=== PATIENT | male | born 1975 | race Caucasian/White ===

== ENCOUNTER 2016-12-23 07:35 | Inpatient (IN) | payer OTHER ==
--- NOTE | 2016-12-17 13:21 | CONS ---
DATE OF ADMISSION: 12/23/2016 DATE OF CONSULTATION: 12/17/2016 REQUESTING PHYSICIAN: Dr. Mccann. DATE OF PLANNED SURGERY: 12/23/2016 Thank you very much for allowing me to evaluate this 41-year-old male who is to undergo cervical spi ne surgery. HISTORICAL EVENTS: As you well know, it has been over 3 years that the patient has noted pain invol ving his neck and shoulders, the left more than right, with intermittent pain involving his left arm and related weakness involving the same. Because of continued symptoms and the lack of physical th erapy to provide any benefit and following electrodiagnostic studies, the patient elected to proceed with surgery. Today, he denies cough, wheezing, shortness of breath, chest pain at rest or with ex ertion. He denies nausea, vomiting, abdominal pain, unusual constipation, or diarrhea. Does have m odest degree of gastroesophageal reflux manifested by discomfort involving the epigastrium and throa t, occurring several times a week, gaining some relief from Zantac and some difficulty swallowing so lids more than liquids in the upper throat and mid chest. He denies urinary frequency, dysuria, fla nk pain, fever or chills, or significant nocturia. PRESENT MEDICATIONS: None. PAST MEDICAL HISTORY: Includes: 1. Left wrist surgery, remote. 2. Appendectomy. 3. No history of diabetes, heart disease, hypertension, or ulcers. 4. History of asthma. Uses a nebulizer intermittently. ALLERGIES: NONE. FAMILY HISTORY: Positive for coronary disease. SOCIAL HISTORY: He is a nonsmoker. , has 3 kids. Socially drinks alcohol. Works for [employer]. PHYSICAL EXAMINATION: GENERAL: Overweight male in no acute distress. VITAL SIGNS: BP 121/81, pulse was 72, respirations were 18. He was afebrile. EYES: Extraocular muscles were full. NOSE, MOUTH, AND THROAT: Normal. NECK: Supple. There was no jugular venous distention, thyroid enlargement, or adenopathy. Carotid s 2+, no bruits. LUNGS: Clear. HEART: Rhythm was regular, no murmur. No third or fourth sound. ABDOMEN: Nontender. Liver and spleen were not palpable. No masses or tenderness were noted. EXTREMITIES: No edema. Calves nontender. Pulses 2+. NEUROLOGIC: Revealed no lateralizing motor weakness. IMPRESSION: 1. Pending labs, I foresee no problems with the planned surgical intervention. 2. Gastroesophageal reflux and dysphasia. I made a strong point that following surgery he does nee d to pursue this with his internal medicine doctor and seek gastroenterology evaluation for needed e ndoscopy, but for the moment he should use Zantac on a regular basis. I will be glad to follow him postoperatively with you. Dictated By: ASIA STOUT/ROCIO Conf#: [id number] DID#: [id number]
[2016-12-20 12:24] VITALS: BMI 34.0
[~2016-12-23] VITALS: Ht 175.3 cm; Wt 103.5 kg
[2016-12-23] VITALS (20 sets, daily range): BP systolic 114–157; BP diastolic 66–92; PULSE 70–115; RESP 12–20; Ht 175.3 cm; Wt 103.5 kg
[~2016-12-23 07:35] MED LIST: CEFAZOLIN 2 GM/50 ML (PMX) 50 ML IVPB SCH; LACTATED RINGER'S 1,000 ML IV* SCH
[2016-12-23] MEDS ORDERED: THROMBIN 5000 UNIT VIAL ONE (09:13)
[2016-12-23] MEDS ORDERED: GELATIN SIZE 100 SPONGE ONE (09:13)
[2016-12-23] MEDS ORDERED: BUPIVACAINE 0.25% (MPF) 10 ML 10 ML VIAL ONE (09:13)
[2016-12-23] MEDS ORDERED: POLYMYXIN/BACITRACIN 1L IRRIG ONE ×2 (09:13→12:51)
[2016-12-23] MEDS ORDERED: MIDAZOLAM 1 MG/ML 2 ML INJ ONE (09:26)
[2016-12-23] MEDS ORDERED: HYDROmorphONE 2 MG/ML SYG ONE (09:26)
[2016-12-23] MEDS ORDERED: PROPOFOL 20 ML ONE ×2 (09:26→09:46)
[2016-12-23] MEDS ORDERED: ROCURONIUM 50 MG INJ ONE (09:26)
[2016-12-23] MEDS ORDERED: ONDANSETRON 4 MG INJ ONE (09:27)
[2016-12-23] MEDS ORDERED: LIDOCAINE 2% JELLY 5 ML ONE (09:28)
--- NOTE | 2016-12-23 09:28 | HPN ---
Date/Time of Note Date/Time of Note DATE: 12/23/16 TIME: 09:28 Interval H&P Admission Note Pt. seen H&P reviewed: No system changes PERI BAUMAN MD Dec 23, 2016 09:28
[2016-12-23] MEDS ORDERED: BACITRACIN/POLYMYXIN 28.35 GM OINT TOP ONE (09:48)
[2016-12-23] MEDS ORDERED: METOPROLOL 5 MG INJ ONE (09:48)
--- NOTE | 2016-12-23 11:50 | RADRPT ---
PROCEDURE: Cross-table lateral x-ray of the cervical spine CLINICAL INDICATION: CERVICAL FUSION C5-6 C6-7 TECHNIQUE: Single cross-table lateral view of the neck. COMPARISON: None. FINDINGS: The endotracheal tube tip extends just below the level of the true vocal cords. An NG tube is noted in place. Anterior endplate spurring is noted at C4-C5 and C5-C6 levels with degenerative endplate changes at C4-C5 and C5-C6, and C6-S7. Posterior spondylitic ridging at C5-C6. Vertebral bodies ar e otherwise normal in height, density, and alignment with preservation of disk interspaces. Intact posterior spinous processes. Craniocervical junction is unremarkable. IMPRESSION: 1. Multilevel degenerative endplate spurring and spondylosis greatest from C4-C5 through C6-C7. 2. Endotracheal tube tip just below the level of the true vocal cords. 3. NG tube in place. 4. No soft tissue or osseous abnormality. RPTAT:AAJJ Physician Clementina Date Time Electronically viewed and signed by Physician Clementina on 12/23/2016 11:50 VIBHA/
[2016-12-23] MEDS ORDERED: DIPHENHYDRAMINE 50 MG INJ IV PRN (12:00)
[2016-12-23] MEDS ORDERED: MEPERIDINE 25 MG INJ IV PRN (12:00)
[2016-12-23] MEDS ORDERED: METOCLOPRAMIDE 10 MG INJ IV PRN (12:00)
[2016-12-23] MEDS ORDERED: ONDANSETRON 4 MG INJ IV PRN ×2 (12:00→15:30)
[2016-12-23] MEDS ORDERED: HYDROmorphONE (0.2 MG/ML) 10ML SYG IV PRN ×3 (12:00)
[2016-12-23] MEDS ORDERED: NEOSTIGMINE 3 MG/3 ML SYRINGE ONE (13:13)
[2016-12-23] MEDS ORDERED: GLYCOPYRROLATE 1 MG INJ ONE (13:13)
--- NOTE | 2016-12-23 14:28 | OPPN ---
Date/Time of Note Date/Time of Note DATE: 12/23/16 TIME: 14:20 Operative/Procedure Note Pre-Operative Diagnosis Herniated disc C5-6 on the right Herniated disc at C6-7 on the left Post-Operative Diagnosis Same Procedure Anterior cervical microdiscectomy C5-6 Anterior cervical microdiscectomy C6-7 Anterior cervical arthrodesis C5-6 Anterior cervical arthrodesis C6-7 Segmental spinal fixation from C5-C7 using RTI plate and screws Left iliac bone grafting Cosmetic wound closures (5 cm left cervical, 3 cm left iliac) Intraoperative nerve monitoring (3 hours) Surgeon: PERI BAUMAN MD Quality Assurance Monitor Body: YURIDIA CALDERON Anesthesiologist: BONITA GRANADOS MD Findings A disc herniation at C5-6 on the right and C6-7 on the left was confirmed. Baseline intraoperative nerve monitoring revealed a decrease in the left C5 potential of 20%, the left C6 potential of 40%, the right C6 potential of 30%, left C7 potential of 40%, and the right C7 potential of 20%. These all returned to normal at the completion of the surgery. Blood Usage/Administration None Implants/Grafts A 32 mm RTI cervical plate and 6 14 mm variable angle self-tapping screws were employed Left iliac bone graft was used at C5-6 and C6-7 as well Estimated blood loss: 10 - 50 ml's Drains 2 medium Hemovac drains were employed in the cervical wound 2 medium Hemovac drains were employed in the left iliac wound Specimens Disc material from C5-6 and C6-7 was sent to the laboratory for pathologic study Complications: None Anesthesia type: general PERI BAUMAN MD Dec 23, 2016 14:28
[2016-12-23 14:35] LABS: ADD UMIC YES; URINE BILIRUBIN (Dip) NEGATIVE (NEGATIVE); URINE BLOOD (Dip) 2+ (NEGATIVE); URINE COLOR LT. YELLOW (YELLOW); URINE GLUCOSE (Dip) NEGATIVE (NEGATIVE); URINE KETONES (Dip) NEGATIVE (NEGATIVE); URINE LEUKOCYTE ESTERASE (Dip) NEGATIVE (NEGATIVE); URINE NITRITE (Dip) NEGATIVE (NEGATIVE); URINE TOTAL PROTEIN (Dip) 1+ (NEGATIVE); URINE UROBILINOGEN (Dip) 0.2 E.U./dL (0.1-1.0)
[2016-12-23 15:13] LABS: BACTERIA,URINE FEW
[2016-12-23] MEDS: HYDROmorphONE 0.2 MG/ML PCA IV SCH ×3 (15:23→15:31)
[2016-12-23] MEDS ORDERED: ZOLPIDEM 5 MG TAB PO PRN (15:30)
[2016-12-23] MEDS ORDERED: HYDROCODONE/APAP (5/325) TAB PO PRN (15:30)
[2016-12-23] MEDS ORDERED: DIAZEPAM 5 MG/ML SYG IM PRN (15:30)
[2016-12-23] MEDS ORDERED: NALOXONE (0.4 MG/ML) INJ IV PRN (15:30)
[2016-12-23] MEDS ORDERED: PROCHLORPERAZINE 10 MG TAB PO PRN (15:30)
[2016-12-23] MEDS ORDERED: CEPASTAT LOZENGE MT PRN (15:30)
[2016-12-23] MEDS ORDERED: DIPHENHYDRAMINE 50 MG CAP PO PRN (15:30)
[2016-12-23] MEDS ORDERED: TRIMETHOBENZAMIDE 100 MG/ML VIAL IM PRN (15:30)
[2016-12-23] MEDS ORDERED: NACL 0.9% 3 ML SYG IV SCH (15:30)
[2016-12-23] MEDS ORDERED: BETHANECHOL 25 MG TAB PO PRN (15:30)
[2016-12-23] MEDS ORDERED: AL HYDROX/MG HYDROX/SIMETH 30 ML CUP PO PRN (15:30)
[2016-12-23] MEDS: DEXTROSE 5%-0.45% NACL 1,000 ML IV SCH (16:04)
[2016-12-23] MEDS ORDERED: ACETAMINOPHEN 325 MG TAB PO PRN (17:00)
--- NOTE | 2016-12-23 17:11 | PREOPHP ---
DATE OF ADMISSION: 12/23/2016 Thank you, Dr. Mccann, for asking me to participate in the medical management of this patient. REASON FOR CONSULTATION: To manage the patient's asthma. HISTORY OF PRESENT ILLNESS: This 41-year-old man is now postop a cervical spine surgery. This baljit ent has been having pain in his neck and shoulders for at least 3 years. He has more pain on the le ft than the right with intermittent pain involving his left arm and related weakness involving the l eft arm. The patient did undergo a cervical spine surgery today by Dr. James Mccann. The patient underwent an anterior cervical microdiscectomy at C5-C6 level and an anterior cervical microdiscecto my at the C6-C7 level with anterior cervical arthrodesis at C5-C6 and anterior cervical arthrodesis at C6-C7. The patient is awake and alert. He denies any chest pain or shortness of breath. PAST MEDICAL HISTORY: Remarkable for asthma for which he takes an inhaler. He says that recently leander ramirez has not had a problem with his asthma and does not need the inhaler at this time. PAST SURGICAL HISTORY: Remarkable for left wrist surgery, appendectomy. ALLERGIES: THE PATIENT DENIES ANY DRUG ALLERGIES. FAMILY HISTORY: Positive for coronary artery disease. SOCIAL HISTORY: He is . He does not smoke. He drinks alcohol socially. He works for the [employer]. PHYSICAL EXAMINATION: GENERAL: At this time reveals a well-developed man in no apparent distress. VITAL SIGNS: Temperature is 98, pulse of 84, respirations 18, blood pressure 145/92, O2 saturation is 92% on 3 liter nasal cannula. IMPRESSION: This patient is stable postoperatively. His vital signs are acceptable. HEAD: Normocephalic. EYES: Extraocular muscles intact. NOSE AND MOUTH: Normal. NECK: He has a large rigid neck brace on. LUNGS: Clear to auscultation. HEART: Regular rhythm. No murmurs, gallops or rubs. ABDOMEN: Soft, nontender. EXTREMITIES: No peripheral edema. IMPRESSION: The patient is doing well postoperatively. He does have a history of asthma; however, this is not active at this time. He says that he only uses an inhaler when his asthma is active. PLAN: 1. I will manage the patient's asthma and his medications. 2. Postop cervical spine surgery protocol. 3. Labs in the morning. 4. I will follow the patient along with you. Dictated By: MILLY LEAHY MD, ND/ROCIO Conf#: [id number] DID#: [id number]
--- NOTE | 2016-12-23 17:23 | OPR ---
DATE OF OPERATION: 12/23/2016 PREOPERATIVE DIAGNOSES: 1. Herniated disk C5-C6 on the right. 2. Herniated disk C6-C7 on the left. POSTOPERATIVE DIAGNOSES: 1. Herniated disk C5-C6 on the right. 2. Herniated disk C6-C7 on the left. OPERATION PERFORMED: 1. Anterior cervical microdiskectomy at C5-6 on the right. 2. Anterior cervical microdiskectomy at C6-7 on the left. 3. Anterior cervical interbody arthrodesis at C5-6. 4. Anterior cervical interbody arthrodesis at C6-7. 5. Segmental spinal fixation from C5 to C7 using RTI 32 mm plate and screws. 6. Left iliac bone graft. 7. Cosmetic wound closures (5 cm left cervical, 3 cm left iliac). 8. AP and lateral cervical radiographs (3 sets). 9. Intraoperative nerve monitoring (3 hours). SURGEON: James Mccann MD ASSISTANT COUNSEL: LEVY Neil ANESTHESIA: General endotracheal. ANESTHESIOLOGIST: Aleyda Piedra MD ESTIMATED BLOOD LOSS: 50 mL, none replaced. DRAINS: Two medium Hemovac drains employed in the cervical wound. Two medium Hemovac drains employ ed in the left iliac wound. COMPLICATIONS: None. PERTINENT HISTORY AND PHYSICAL: This is a 41-year-old male who sustained an injury to his neck in t he course of employment on 09/29/2014. He has had extensive care since that time. He has remained symptomatic with neck and upper extremity complaints, left greater than right, which have been unrel ieved by conservative management. He has undergone a number of diagnostic studies including an MRI of the cervical spine, which demonstrated herniations at C5-6 disk on the right at C6-7 disk on the left. Treatment options were discussed with the patient, who elected to proceed with surgery. OPERATIVE FINDINGS AT SURGERY: Herniations at C5-6 on the right at C6-C7 on the left were confirmed . The baseline intraoperative nerve monitoring revealed a decrease in the left C5 potential of 20%, the left C6 potential of 40%, the right C6 potential of 30%, the left C7 potential of 40%, and the right C7 potential of 20%. These all returned to normal at the completion of surgery. OPERATIVE PROCEDURE: With the patient in supine position after satisfactory induction of general en dotracheal anesthesia by Dr. Piedra, the patient was positioned in the supine position with a 5- pound sandbag under the left buttock and a 3 liter IV bottle under the shoulders. The anterior cerv ical spine and left iliac crest were prepped and draped in usual sterile fashion. Athrombic pumps w ere applied to the legs below the knees to prevent venous stasis during and after procedure and an i ndwelling Salazar catheter was also placed preoperatively to facilitate bladder drainage during and af ter the procedure. A 5 cm incision was carried out on the anterior aspect of cervical spine 2 fingerbreadths above the left clavicle in line with the left clavicle through skin and subcutaneous tissue to the platysma fa scia. Superficial retractors were placed and hemostasis secured with electrocautery. Throughout th e procedure, copious amounts of antibacterial irrigating solution were used to periodically irrigate the wound. The platysma fascia was divided transversely and the interval between the sternocleidom astoid and strap muscles was entered with blunt dissection. The trachea and esophagus were mobilize d to the right and protected with a Enrique hand-held retractor. A peanut elevator was then used to clear the anterior longitudinal ligament of overlying soft tissues. A 20-gauge spinal needle was c arefully angulated to prevent overpenetration and was then placed into what was felt to be the C5-6 and C6-7 disk spaces. A lateral cervical radiograph was taken, which confirmed anatomic localizatio n. The longissimus coli muscles were then elevated bilaterally using a hot knife, and the Enrique s elf-retaining retractor was placed at C5-6 and C6-7. The operating microscope was then moved into [facility]. A 15 blade knife was then used to cut a rectangular window in the annulus and anterior longit udinal ligament at C6-7. The 0, 2-0, 3-0, and 4-0 straight and angulated Temi curettes were then used to evacuate the nuclear contents back to the level of the posterior longitudinal ligament. The Cloward interbody distractors were used to facilitate disk space distraction. The posterior longit udinal ligament was taken down in midline with a 1 mm Kerrison punch and then over to the foramina b ilaterally. This decompressed the spinal cord and exiting C7 roots at that level. The [employer] high -speed anahy bur was then used to abrade the cartilaginous endplates down to subchondral bleeding bone. Attention was then turned to the C5-6 disk where the identical procedure was carried out. Th e posterior longitudinal ligament was taken down at the C5-C6 level as well to facilitate decompress ion of the spinal cord and the exiting C6 nerve roots at that level. Attention was then turned to t he left iliac crest where a 3 cm incision was carried out 1 inch proximal and 1 inch lateral to the anterior superior iliac spine in line with the iliac crest through skin and subcutaneous tissue to t he fascia. The skin was retracted to the level of the iliac crest and a fascial incision made direc tly over the iliac crest with a hot knife. A subperiosteal dissection was then carried out in the i nner and outer table of the left ilium, and a tricortical iliac bone graft harvested using a Black a nd Corbett reciprocating power saw and a 3/4 inch curved osteotome and mallet. The bone was divided into 2 pieces, each approximately 6 mm in height and 8 mm in depth. Attention was then returned to the cervical wound where the bone plugs were placed into the C5-6 and C6-7 disk spaces under direct vision using the Cloward impactors. The donor bone site was copiously irrigated with antibacterial irrigating solution and bone edges secured with bone wax for hemostasis. The wound was closed over 2 medium Hemovac drains, one below the fascia and one above the fascia, using #1 Vicryl sutures on t he fascia, 2-0 Vicryl sutures in subcutaneous tissue, and a 4-0 Vicryl subcuticular cosmetic closing suture on the skin. With the bone plugs having been impacted at C5-6 and C6-7. A 32 mm RTI cervical plate was temporari ly transfixed to the anterior aspect of cervical spine with the temporary darts, AP and lateral x-ra ys taken, which confirmed appropriate positioning of the bone plugs and the hardware. The 14 mm dario iable angle self-tapping screws were then placed into the 6 screw holes, 2 into C5, 2 into C6, and 2 into C7. Final AP and lateral cervical radiographs were taken, which confirmed appropriate positio daria of the bone plugs and the hardware. The wound was copiously irrigated with antibacterial irrig ating solution then closed over 2 medium Hemovac drains, one below the fascia, one above the fascia using 0 Vicryl sutures to reapproximate the interval between the sternocleidomastoid and strap muscl es, 0 Vicryl sutures on the platysma fascia, 3-0 Vicryl sutures in subcutaneous tissue, and a 4-0 Vi cryl subcuticular cosmetic closing suture on the skin. Dermabond and sterile dressings were applied to both incisions. The patient's neck was then immobilized in a cervical collar. He was then awak ened and extubated by Dr. Piedra. He was transported to recovery room in satisfactory condition . At the conclusion of the procedure, sponge, instrument, and needle counts were all correct. NEED FOR MEDIA SERVICES COORDINATOR: During this spinal surgical procedure, my human resources assistant manager was used to retrac t and protect the spinal nerves and dural sac. My human resources assistant manager also employed the suction catheters to evacuate blood from the surgical field to improve visualization of the neural structures. The sandra tant was medically necessary to facilitate the completion of the surgery in a safe and expeditious sabino. State of [place] regulations, as well as hospital bylaws, preclude the use of non-license d health care personnel such as operating room technicians, to perform these functions. Throughout the procedure, neural monitoring was carried out by [employer] including C4, C5, C6, C7, C8, along with spinal cord potentials and monitoring of the vocal cords. These were interpreted by neurologist employed by [employer]. Dictated By: JAMES MCCANN MD TM/NTS Conf#: [id number] DID#: [id number] CC: ASIA HERNANDEZ MD;*[facility]*
[2016-12-23] MEDS: AL HYDROX/MG HYDROX/SIMETH 30 ML CUP PO PRN (19:29)
[2016-12-23] MEDS: RANITIDINE 150 MG TAB PO SCH (21:36)
[2016-12-24] MEDS: DEXTROSE 5%-0.45% NACL 1,000 ML IV SCH ×3 (01:10→21:08)
[2016-12-24] MEDS: DIAZEPAM 5 MG TAB PO PRN ×2 (01:48→19:54)
[2016-12-24 05:48] LABS: BASOPHILS % 0.2 % (0.0-2.0); EOSINOPHILS % 0.2 % (0.0-7.0); HEMATOCRIT 43.5 % (42.0-52.0); HEMOGLOBIN 14.8 g/dl (14.0-18.0); LYMPHOCYTES # 1.2 10^3/ul (0.8-2.9); LYMPHOCYTES % 9.3 % (15.0-51.0); MEAN CORPUSCULAR HEMOGLOBIN 31.8 pg (29.0-33.0); MEAN CORPUSCULAR VOLUME 93.7 fl (82.0-101.0); MEAN PLATELET VOLUME 9.9 fl (7.4-10.4); MONOCYTE # 0.9 10^3/ul (0.3-0.9); MONOCYTES % 6.8 % (0.0-11.0); NEUTROPHIL # 10.4 10^3/ul (1.6-7.5); NEUTROPHILS % 83.5 % (39.0-77.0); PLATELET COUNT 178 10^3/UL (140-440); RED BLOOD COUNT 4.64 10^6/ul (4.70-6.10); RED CELL DISTRIBUTION WIDTH 13.1 % (11.5-14.5); UNCORRECTED WBC 12.5 10^3/ul (4.8-10.8); WHITE BLOOD COUNT 12.5 10^3/ul (4.8-10.8)
[2016-12-24 05:51] LABS: CONDITION 1
[2016-12-24 06:05] LABS: POTASSIUM 3.6 mmol/L (3.5-5.1)
[2016-12-24 06:07] LABS: CREATININE 0.72 mg/dl (0.61-1.24)
[2016-12-24 06:08] LABS: CALCIUM 9.2 mg/dl (8.4-10.2)
--- NOTE | 2016-12-24 07:22 | PN ---
Date/Time of Note Date/Time of Note DATE: 12/24/16 TIME: 07:19 Assessment/Plan Lines/Catheters IV Catheter Type (from Nrs): Peripheral IV Salazar in Place (from Nrsg): Yes Subjective 24 Hr Interval Summary Patient is doing well postop day #1 from anterior cervical fusion. He has stood up at the edge of the bed but has not been up walking. He notes improvement in preoperative arm symptoms. Hemoglobin today is 14.8. Drain outputs were each 40cc in the neck and the hip and these will be monitored today. Plan for today is for him to mobilize with physical therapy, advance his diet, and DC DATA QUALITY CONSULTANT. Exam/Review of Systems Vital Signs Vitals Vital Signs Date Time Temp Pulse Resp B/P Pulse Ox O2 Delivery O2 Flow Rate FiO2 12/24/16 06:08 18 12/23/16 23:50 98.8 97 131/71 96 12/23/16 18:20 Nasal Cannula 2.0 Intake and Output 12/23/16 12/23/16 12/24/16 15:00 23:00 07:00 Intake Total 1200 ml 460 ml 1800 ml Output Total 290 ml 625 ml 80 ml Balance 910 ml -165 ml 1720 ml Results Result Diagram: 12/24/16 0432 12/24/16 0432 YURIDIA CALDERON Dec 24, 2016 07:22
[2016-12-24 07:51] VITALS: BP 145/80; RESP 18
[2016-12-24] MEDS ORDERED: BETHANECHOL 25 MG TAB PO PRN (08:00)
--- NOTE | 2016-12-24 08:10 | CONS ---
Date/Time of Note Date/Time of Note DATE: 12/24/16 TIME: 08:08 Assessment/Plan Assessment/Plan Additional Assessment/Plan 1. S/P cx spine surgery, stable 2. GERD, stable Consultation Date/Type/Reason Admit Date/Time Dec 23, 2016 at 07:35 Initial Consult Date Detailed Summary Respiratory: No cough, No shortness of breath Cardiovascular: No chest pain Gastrointestinal: no complaints Genitourinary: no complaints Musculoskeletal: back pain, neck pain (mild neck pain, and sl diff swallowing) Exam/Review of Systems Vital Signs Vitals Vital Signs Date Time Temp Pulse Resp B/P Pulse Ox O2 Delivery O2 Flow Rate FiO2 12/24/16 07:51 97.8 86 18 145/80 97 12/23/16 18:20 Nasal Cannula 2.0 Intake and Output 12/23/16 12/23/16 12/24/16 14:59 22:59 06:59 Intake Total 1200 ml 460 ml 1800 ml Output Total 290 ml 625 ml 80 ml Balance 910 ml -165 ml 1720 ml Exam Respiratory: clear to auscultation Cardiovascular: regular rate and rhythm Gastrointestinal: soft Extremities: No edema (and no calf tend) Results Result Diagram: 12/24/16 0432 12/24/16 0432 Results 24 hrs Laboratory Tests Test 12/23/16 14:00 12/24/16 04:32 Urine Bacteria FEW Urine Bilirubin NEGATIVE Urine Clarity CLEAR Urine Color LT. YELLOW Urine Epithelial Cells FEW Urine Glucose NEGATIVE Urine Granular Casts MODERATE Urine Hemoglobin 2+ H Urine Hyaline Casts FEW Urine Ketones NEGATIVE Urine Leukocyte Esterase NEGATIVE Urine Microscopic RBC 10-25 Urine Microscopic WBC 2-5 Urine Nitrite NEGATIVE Urine Specific [place] 1.020 Urine Total Protein 1+ H Urine Urobilinogen 0.2 E.U./dL Urine pH 7.0 Anion Gap 15 Basophils # 0.0 Basophils % 0.2 Blood Urea Nitrogen 11 Calcium Level 9.2 Carbon Dioxide Level 27 Chloride Level 104 Creatinine 0.72 Eosinophils # 0.0 Eosinophils % 0.2 Glucose Level 117 Hematocrit 43.5 Hemoglobin 14.8 Lymphocytes # 1.2 Lymphocytes % 9.3 L Mean Corpuscular Hemoglobin 31.8 Mean Corpuscular Hemoglobin Concent 34.0 Mean Corpuscular Volume 93.7 Mean Platelet Volume 9.9 Monocytes # 0.9 Monocytes % 6.8 Neutrophils # 10.4 H Neutrophils % 83.5 H Nucleated Red Blood Cells # 0.0 Nucleated Red Blood Cells % 0.0 Platelet Count 178 Potassium Level 3.6 Red Blood Count 4.64 L Red Cell Distribution Width 13.1 Sodium Level 142 White Blood Count 12.5 H Medications Medications Current Medications Dextrose/Sodium Chloride (D5-1/2ns) 1,000 ml @ 100 mls/hr Q10H IV Last administered on 12/24/16 01:10; Admin Dose 100 MLS/HR; Start 12/23/16 at 15:08 Acetaminophen/ Hydrocodone Bitart ([place] (5/325)) 1 tab Q4H PRN PO PAIN LEVEL 1 -5; Start 12/23/16 at 15:30; Status Future hold Acetaminophen/ Hydrocodone Bitart ([place] (5/325)) 2 tab Q4H PRN PO PAIN LEVEL 6 -10; Start 12/23/16 at 15:30; Status Future hold Zolpidem Tartrate (Ambien) 5 mg HS PRN PO INSOMNIA; Start 12/23/16 at 15:30 Prochlorperazine (Compazine) 10 mg Q4H PRN PO NAUSEA AND/OR VOMITING; Start at 15:30 Trimethobenzamide HCl (Tigan) 200 mg Q4H PRN IM NAUSEA AND/OR VOMITING; Start 12/23/16 at 15:30 Ondansetron HCl (Zofran Inj) 4 mg Q6H PRN IV NAUSEA AND/OR VOMITING Last administered on 12/23/16 16:05; Admin Dose 4 MG; Start 12/23/16 at 15:30 Docusate Sodium (Colace) 100 mg BID PO ; Start 12/24/16 at 09:00 Acetaminophen (Tylenol Tab) 650 mg Q4H PRN PO TEMP GREATER THAN 101F OR [place]; Start 12/23/16 at 17:00 Ascorbic Acid (Vitamin C) 1,000 mg BID PO ; Start 12/24/16 at 09:00 Ferrous Sulfate (Ferrous Sulfate (Ec)) 325 mg TID PO ; Start 12/24/16 at 09:00 Ranitidine HCl (Zantac) 150 mg BID PO Last administered on 12/23/16 21:36; Admin Dose 150 MG; Start 12/23/16 at 21:00 Diazepam (Valium) 5 mg Q4H PRN PO MUSCLE SPASMS Last administered on 12/24/16 01:48; Admin Dose 5 MG; Start 12/23/16 at 15:30 Diazepam (Valium) 5 mg Q4H PRN IM MUSCLE SPASMS; Start 12/23/16 at 15:30 Phenol (Cepastat Lozenge) 1 lozenge PRN PRN MT SORE THROAT; Start 12/23/16 at 15:30 Bethanechol Chloride (Urecholine) 25 mg PRN PRN PO UNABLE TO VOID; Start at 15:30 Diphenhydramine HCl (Benadryl) 50 mg Q6H PRN PO PRURITUS; Start 12/23/16 at 15: 30 Hydromorphone HCl (Dilaudid HUNTING GUIDE) Q4PCA IV Last administered on 12/23/16 15:31 ; Admin Dose 6 MG; Start 12/23/16 at 15:30 Naloxone HCl (Narcan) 0.2 mg Q2M PRN IV RR 8 BREATHS/MIN OR LESS; Start at 15:30 Al Hydrox/Mg Hydrox/Simethicone (Mag-Al Plus) 30 ml Q6H PRN PO GASTROINTESTINAL UPSET Last administered on 12/23/16 19:29; Admin Dose 30 ML; Start 12/23/16 at 17:30 Bethanechol Chloride (Urecholine) 25 mg PRN PRN PO UNABLE TO VOID; Start at 08:00 ASIA HERNANDEZ MD Dec 24, 2016 08:09
[2016-12-24] MEDS: FERROUS SULFATE (EC) 325 MG TAB PO SCH ×3 (09:46→21:21)
[2016-12-24] MEDS: ASCORBIC ACID 500 MG TAB PO SCH ×2 (09:47→21:21)
[2016-12-24] MEDS: RANITIDINE 150 MG TAB PO SCH ×2 (09:47→21:21)
[2016-12-24] MEDS: DOCUSATE SODIUM 100 MG CAP PO SCH ×2 (09:47→21:21)
[2016-12-24] MEDS: HYDROCODONE/APAP (5/325) TAB PO PRN ×3 (09:47→17:49)
[2016-12-24 10:36] LABS: ADD UMIC YES; URINE BILIRUBIN (Dip) NEGATIVE (NEGATIVE); URINE BLOOD (Dip) 1+ (NEGATIVE); URINE COLOR LT. YELLOW (YELLOW); URINE GLUCOSE (Dip) NEGATIVE (NEGATIVE); URINE KETONES (Dip) NEGATIVE (NEGATIVE); URINE LEUKOCYTE ESTERASE (Dip) NEGATIVE (NEGATIVE); URINE NITRITE (Dip) NEGATIVE (NEGATIVE); URINE TOTAL PROTEIN (Dip) NEGATIVE (NEGATIVE); URINE UROBILINOGEN (Dip) 0.2 E.U./dL (0.1-1.0)
[2016-12-24] MEDS: AL HYDROX/MG HYDROX/SIMETH 30 ML CUP PO PRN (20:00)
[2016-12-24 20:59] VITALS: BP 132/77; RESP 20
[2016-12-25] MEDS: DIAZEPAM 5 MG TAB PO PRN (02:06)
[2016-12-25] MEDS ORDERED: OXYCODONE/ACETAMINOPHEN (5/325) TAB PO PRN (02:30)
[2016-12-25] MEDS: OXYCODONE/ACETAMINOPHEN (5/325) TAB PO PRN ×3 (05:04→13:18)
[2016-12-25] MEDS: DEXTROSE 5%-0.45% NACL 1,000 ML IV SCH (06:22)
--- NOTE | 2016-12-25 06:54 | PN ---
Date/Time of Note Date/Time of Note DATE: 12/25/16 TIME: 06:52 Assessment/Plan Lines/Catheters IV Catheter Type (from Nrsg): Saline Lock Salazar in Place (from Nrsg): No Subjective 24 Hr Interval Summary The patient is postop day #2 following an anterior cervical microdiscectomy and interbody arthrodesis at C5-6 and C6-7. He is comfortable in bed examination reveals neurovascular structures to be intact distally. His cervical collar is in place. I anticipate physical therapy will clear him for discharge later today. He was given strict discharge precautions and instructions. He was given instruction sheets for his information. Exam/Review of Systems Vital Signs Vitals Vital Signs Date Time Temp Pulse Resp B/P Pulse Ox O2 Delivery O2 Flow Rate FiO2 12/24/16 20:59 98.6 81 20 132/77 95 12/24/16 08:00 Nasal Cannula 2.0 Intake and Output 12/24/16 12/24/16 12/25/16 15:00 23:00 07:00 Intake Total 630 ml 650 ml Output Total 645 ml Balance -15 ml 650 ml Results Result Diagram: 12/24/16 0432 12/24/16 0432 PERI BAUMAN MD Dec 25, 2016 06:54
[2016-12-25 08:14] VITALS: BP 124/76; RESP 16
--- NOTE | 2016-12-25 08:34 | CONS ---
Date/Time of Note Date/Time of Note DATE: 12/25/16 TIME: 08:32 Assessment/Plan Assessment/Plan Additional Assessment/Plan 1. Doing well post cx spine surgery 2. GERD, quiescent 3. Can dc per ortho and PT 4. Rec he see his IM MD on dc re dysphagia and rev sxs--re endoscopy Consultation Date/Type/Reason Admit Date/Time Dec 23, 2016 at 07:35 Detailed Summary Respiratory: No cough, No shortness of breath Cardiovascular: No chest pain Gastrointestinal: no complaints Genitourinary: no complaints Musculoskeletal: neck pain (mild-moderate but better then yesterday) Exam/Review of Systems Vital Signs Vitals Vital Signs Date Time Temp Pulse Resp B/P Pulse Ox O2 Delivery O2 Flow Rate FiO2 12/25/16 08:14 98.1 67 16 124/76 94 12/24/16 08:00 Nasal Cannula 2.0 Intake and Output 12/24/16 12/24/16 12/25/16 15:00 23:00 07:00 Intake Total 630 ml 650 ml Output Total 645 ml Balance -15 ml 650 ml Exam Neck: No jvd Respiratory: clear to auscultation Cardiovascular: regular rate and rhythm Gastrointestinal: soft Extremities: No edema (and no calf tend) Results Result Diagram: 12/24/16 0432 12/24/16 0432 Results 24 hrs Laboratory Tests Test 12/24/16 09:00 Urine Amorphous Phosphates MANY Urine Bilirubin NEGATIVE Urine Clarity SLIGHTLY CLOUDY Urine Color LT. YELLOW Urine Epithelial Cells FEW Urine Glucose NEGATIVE Urine Hemoglobin 1+ H Urine Ketones NEGATIVE Urine Leukocyte Esterase NEGATIVE Urine Microscopic RBC 5-10 Urine Microscopic WBC 5-10 Urine Nitrite NEGATIVE Urine Specific [place] 1.015 Urine Total Protein NEGATIVE Urine Urobilinogen 0.2 E.U./dL Urine pH 7.0 Medications Medications Current Medications Dextrose/Sodium Chloride (D5-1/2ns) 1,000 ml @ 100 mls/hr Q10H IV Last administered on 12/24/16t 01:10; Admin Dose 100 MLS/HR; Start 12/23/16 at 15:08 Acetaminophen/ Hydrocodone Bitart ([place] (5/325)) 1 tab Q4H PRN PO PAIN LEVEL 1 -5; Start 12/23/16 at 15:30; Status Future hold Acetaminophen/ Hydrocodone Bitart ([place] (5/325)) 2 tab Q4H PRN PO PAIN LEVEL 6 -10 Last administered on 12/24/16 17:49; Admin Dose 2 TAB; Start 12/23/16 at 15 :30; Status Future hold Zolpidem Tartrate (Ambien) 5 mg HS PRN PO INSOMNIA; Start 12/23/16 at 15:30 Prochlorperazine (Compazine) 10 mg Q4H PRN PO NAUSEA AND/OR VOMITING; Start at 15:30 Trimethobenzamide HCl (Tigan) 200 mg Q4H PRN IM NAUSEA AND/OR VOMITING; Start 12/23/16 at 15:30 Ondansetron HCl (Zofran Inj) 4 mg Q6H PRN IV NAUSEA AND/OR VOMITING Last administered on 12/23/16 16:05; Admin Dose 4 MG; Start 12/23/16 at 15:30 Docusate Sodium (Colace) 100 mg BID PO Last administered on 12/24/16 21:21; Admin Dose 100 MG; Start 12/24/16 at 09:00 Acetaminophen (Tylenol Tab) 650 mg Q4H PRN PO TEMP GREATER THAN 101F OR [place]; Start 12/23/16 at 17:00 Ascorbic Acid (Vitamin C) 1,000 mg BID PO Last administered on 12/24/16 21:21 ; Admin Dose 1,000 MG; Start 12/24/16 at 09:00 Ferrous Sulfate (Ferrous Sulfate (Ec)) 325 mg TID PO Last administered on 21:21; Admin Dose 325 MG; Start 12/24/16 at 09:00 Ranitidine HCl (Zantac) 150 mg BID PO Last administered on 12/24/16 21:21; Admin Dose 150 MG; Start 12/23/16 at 21:00 Diazepam (Valium) 5 mg Q4H PRN PO MUSCLE SPASMS Last administered on 12/25/16 02:06; Admin Dose 5 MG; Start 12/23/16 at 15:30 Diazepam (Valium) 5 mg Q4H PRN IM MUSCLE SPASMS; Start 12/23/16 at 15:30 Phenol (Cepastat Lozenge) 1 lozenge PRN PRN MT SORE THROAT; Start 12/23/16 at 15:30 Bethanechol Chloride (Urecholine) 25 mg PRN PRN PO UNABLE TO VOID Last administered on 12/24/16 09:47; Admin Dose 25 MG; Start 12/23/16 at 15:30 Diphenhydramine HCl (Benadryl) 50 mg Q6H PRN PO PRURITUS; Start 12/23/16 at 15: 30 Naloxone HCl (Narcan) 0.2 mg Q2M PRN IV RR 8 BREATHS/MIN OR LESS; Start at 15:30 Al Hydrox/Mg Hydrox/Simethicone (Mag-Al Plus) 30 ml Q6H PRN PO GASTROINTESTINAL UPSET Last administered on 12/24/16 20:00; Admin Dose 30 ML; Start 12/23/16 at 17:30 Bethanechol Chloride (Urecholine) 25 mg PRN PRN PO UNABLE TO VOID; Start at 08:00 Oxycodone/ Acetaminophen (Percocet (5/ 325)) 1 tab Q4H PRN PO PAIN; Start 12/25 at 02:30 Oxycodone/ Acetaminophen (Percocet (5/ 325)) 2 tab Q4H PRN PO PAIN Last administered on 12/25/16 05:04; Admin Dose 2 TAB; Start 12/25/16 at 02:30 ASIA HERNANDEZ MD Dec 25, 2016 08:34
[2016-12-25] MEDS: FERROUS SULFATE (EC) 325 MG TAB PO SCH ×2 (08:58→13:00)
[2016-12-25] MEDS: RANITIDINE 150 MG TAB PO SCH (08:58)
[2016-12-25] MEDS: DOCUSATE SODIUM 100 MG CAP PO SCH (08:59)
[2016-12-25] MEDS: ASCORBIC ACID 500 MG TAB PO SCH (08:59)
== END 2016-12-25 13:46 | disposition home or self-care (01) | DRG 473 ==
LOC: REC 07:35 → MS1 15:40
PROVIDERS: ADMIT Orthopaedic Surgery; ATTEND Orthopaedic Surgery
PROC: 0RB30ZZ Excision of Cervical Vertebral Disc, Open Approach (ICD-10-PCS; 2016-12-23)
PROC: 0QB30ZZ Excision of Left Pelvic Bone, Open Approach (ICD-10-PCS; 2016-12-23)
PROC: 0RG2070 Fusion of 2 or more Cervical Vertebral Joints with Autologous Tissue Substitute, Anterior Approach, Anterior Column, Open Approach (ICD-10-PCS; principal; 2016-12-23 09:30)
DX: M50.222 Other cervical disc displacement at C5-C6 level (principal); R13.10 Dysphagia, unspecified; K21.9 Gastro-esophageal reflux disease without esophagitis
CPT/HCPCS: 72020; 72050; 80048; 81001; 81003; 85025; 86850; 86900; 86901; 86920; 87086; 97116; 97162; 97530; J0690; J1170; J2250; J2405; J2710; J7042; J7120